=== PATIENT | female | born 1935 | race Caucasian/White ===

== ENCOUNTER 2023-08-24 13:04 | Inpatient (IN) | payer MEDICARE, OTHER ==
[~2023-08-24] VITALS: Ht 157.5 cm; Wt 47.2 kg
[2023-08-24] VITALS (7 sets, daily range): BP systolic 142–145; BP diastolic 61–66; PULSE 68–87; RESP 17–27; TEMP 97.5–99.1; O2SAT 100
[~2023-08-24 13:04] MED LIST: CYCLOBENZAPRINE5 MG PO; LEVOTHYROXINE50 MCG PO; LOSARTAN POTAS100 MG PO; MOTRIN200 MG PO
[2023-08-24 14:10] LABS: BASOPHILS % 0.5 % (0.0-1.0); HEMATOCRIT 29.9 % (34.2-44.1); LYMPHOCYTES # (AUTO) 0.6 (1.0-3.2); LYMPHOCYTES % 6.8 % (18.0-39.1); MEAN CORPUSCULAR HEMOGLOBIN 29.2 pg (28-32); MEAN CORPUSCULAR HGB CONC 30.1 g/dL (31-35); MEAN CORPUSCULAR VOLUME 97.1 fL (81-99); MONOCYTES # (AUTO) 0.5 (0.2-0.8); MONOCYTES % 5.4 % (4.4-11.3); NEUTROPHILS # (AUTO) 7.3 (2.1-6.9); NEUTROPHILS % 86.9 % (38.7-80.0); PLATELET COUNT 172 x10e3/uL (140-360); RED BLOOD COUNT 3.08 x10e6/uL (3.6-5.1); RED CELL DISTRIBUTION WIDTH 13.2 % (11.7-14.4); WHITE BLOOD COUNT 8.41 x10e3/uL (4.8-10.8)
[2023-08-24] MEDS: SODIUM CHLORIDE 0.9% 1000ML 1,000 ML IV STA (14:11)
[2023-08-24 14:21] LABS: INR 0.94; PARTIAL THROMBOPLASTIN TIME 31.2 seconds (23.8-35.5); PROTHROMBIN TIME 13.2 seconds (11.9-14.5)
[2023-08-24 14:28] LABS: ALANINE AMINOTRANSFERASE 8 IU/L (0-55); ALBUMIN 3.4 g/dL (3.5-5.0); ALBUMIN/GLOBULIN RATIO 1.1 (0.8-2.0); ALKALINE PHOSPHATASE 96 IU/L (40-150); ANION GAP 16.5 mmol/L (8-16); BILIRUBIN,TOTAL 0.7 mg/dL (0.2-1.2); BLOOD UREA NITROGEN 28 mg/dL (7-26); BUN/CREATININE RATIO 18 (6-25); CALCIUM 8.5 mg/dL (8.4-10.2); CARBON DIOXIDE 21 mmol/L (22-29); CHLORIDE 105 mmol/L (98-107); CREATINE KINASE 9 IU/L (29-168); CREATININE, SERUM 1.54 mg/dL (0.57-1.11); EST GLOMERULAR FILTRATION RATE 32 ML/MIN (>=60); GLUCOSE 106 mg/dL (74-118); MAGNESIUM 1.7 MG/DL (1.3-2.1); POTASSIUM 4.5 mmol/L (3.5-5.1); SODIUM 138 mmol/L (136-145); TOTAL PROTEIN 6.4 g/dL (6.5-8.1)
[2023-08-24 14:47] LABS: TROPONIN I < 0.001 ng/mL (0-0.300)
[2023-08-24] MEDS ORDERED: HEPARIN SOD/DEXTROSE 5% 25000 UNIT/250 ML BAG IV SCH (15:15)
[2023-08-24] MEDS ORDERED: HEPARIN SOD (PORCINE) 5,000 UNIT/ML VIAL IV ONE (15:15)
[2023-08-24] MEDS ORDERED: ALBUTEROL/IPRATROPIUM 3 ML NEB NEB PRN (15:30)
[2023-08-24] MEDS: HEPARIN 25,000 UNIT/D5W 250ML 250 ML IV SCH (16:15)
[2023-08-24] MEDS: HEPARIN SOD (PORCINE) 1000 UNIT/ML SDV IV ONE (16:16)
[2023-08-24 16:32] LABS: BILIRUBIN,URINE NEGATIVE (NEGATIVE); CLARITY,URINE HAZY (CLEAR); COLOR,URINE YELLOW (YELLOW); GLUCOSE, URINE NEGATIVE (NEGATIVE); KETONES,URINE NEGATIVE (NEGATIVE); LEUKOCYTE ESTERASE ,URINE LARGE (NEGATIVE); NITRITE,URINE NEGATIVE (NEGATIVE); PH,URINE 7 (5 - 7); PROTEIN,URINE DIPSTICK 2+ (NEGATIVE); URINE UROBILINOGEN 0.2 mg/dL (0.2 - 1)
[2023-08-24 16:43] LABS: BACTERIA,URINE MANY /HPF; WBC,URINE (MAN) 21-50 /HPF (0-5)
[2023-08-24] MEDS: METHYLPREDNISOLONE SOD SUCC 125 MG/2ML VIAL IV ONE (19:33)
[2023-08-24] MEDS: SODIUM CHLORIDE 0.9% 1000ML 1,000 ML IV ONE (19:33)
[2023-08-25] VITALS (9 sets, daily range): BP systolic 122–160; BP diastolic 59–77; PULSE 67–78; RESP 17–20; TEMP 97.3–98; O2SAT 94–100
[2023-08-25] MEDS: METHYLPREDNISOLONE SOD SUCC 125 MG/2ML VIAL IV SCH ×2 (01:39→15:20)
[2023-08-25 05:47] LABS: BASOPHILS % 0.1 % (0.0-1.0); HEMATOCRIT 27.3 % (34.2-44.1); HEMOGLOBIN 8.7 g/dL (12.0-16.0); LYMPHOCYTES # (AUTO) 0.6 (1.0-3.2); LYMPHOCYTES % 6.1 % (18.0-39.1); MEAN CORPUSCULAR HEMOGLOBIN 30.2 pg (28-32); MEAN CORPUSCULAR HGB CONC 31.9 g/dL (31-35); MEAN CORPUSCULAR VOLUME 94.8 fL (81-99); MONOCYTES # (AUTO) 0.1 (0.2-0.8); MONOCYTES % 1.4 % (4.4-11.3); NEUTROPHILS # (AUTO) 8.8 (2.1-6.9); NEUTROPHILS % 91.9 % (38.7-80.0); PLATELET COUNT 155 x10e3/uL (140-360); RED BLOOD COUNT 2.88 x10e6/uL (3.6-5.1); RED CELL DISTRIBUTION WIDTH 13.1 % (11.7-14.4); WHITE BLOOD COUNT 9.57 x10e3/uL (4.8-10.8)
[2023-08-25 06:17] LABS: ALBUMIN 2.8 g/dL (3.5-5.0); ANION GAP 13.3 mmol/L (8-16); BILIRUBIN,TOTAL 0.6 mg/dL (0.2-1.2); CALCIUM 8.1 mg/dL (8.4-10.2); CREATININE, SERUM 1.47 mg/dL (0.57-1.11); POTASSIUM 4.3 mmol/L (3.5-5.1); TOTAL PROTEIN 5.7 g/dL (6.5-8.1)
[2023-08-25 06:23] LABS: CREATINE KINASE 8 IU/L (29-168)
[2023-08-25 06:34] LABS: TROPONIN I < 0.001 ng/mL (0-0.300)
[2023-08-25] MEDS ORDERED: ONDANSETRON HCL INJ 2MG/ML 2ML 2 MG/ML VIAL IV PRN (09:15)
[2023-08-25] MEDS ORDERED: HYDROCODONE/APAP 7.5MG-325MG 1 EA TAB PO PRN (09:15)
[2023-08-25] MEDS ORDERED: ACETAMINOPHEN 325 MG TAB PO PRN (09:15)
[2023-08-25 10:22] LABS: THYROID STIMULATING HORMONE 0.829 uIU/mL (0.350-4.940)
[2023-08-25 10:28] LABS: FOLATE 7.3 ng/mL (7.0-15.4)
[2023-08-25 13:15] LABS: CREATINE KINASE 19 IU/L (29-168)
[2023-08-25 13:26] LABS: TROPONIN I < 0.001 ng/mL (0-0.300)
[2023-08-25] MEDS: APIXABAN 5 MG TABLET PO SCH (18:30)
[2023-08-25] MEDS: CYCLOBENZAPRINE HCL 10 MG TAB PO SCH (18:30)
[2023-08-25] MEDS: SENNA-S TABLET PO SCH (18:30)
[2023-08-26] VITALS (8 sets, daily range): BP systolic 149–186; BP diastolic 72–90; PULSE 66–88; RESP 16–21; TEMP 97–98.2; O2SAT 98–100
[2023-08-26] MEDS: LEVOTHYROXINE SODIUM 50 MCG TAB PO SCH (05:21)
[2023-08-26] MEDS: HYDRALAZINE HCL 20 MG/ML VIAL IV PRN (09:53)
[2023-08-26] MEDS ORDERED: ONDANSETRON HCL 4 MG ORAL DISINTEGRATING TAB PO PRN (15:45)
[2023-08-27 00:25] VITALS: BP 161/70; PULSE 74; RESP 17; TEMP 97.6; O2SAT 100
[2023-08-27 04:00] VITALS: BP 175/77; PULSE 74; RESP 21; TEMP 97; O2SAT 100
[2023-08-27 06:15] VITALS: PULSE 74; RESP 20; O2SAT 95
[2023-08-27 07:50] VITALS: BP 149/68; PULSE 82; RESP 17; TEMP 97.3; O2SAT 98
[2023-08-27 09:48] LABS: BASOPHILS % 0.1 % (0.0-1.0); EOSINOPHILS # (AUTO) 0.1 (0.0-0.4); EOSINOPHILS % 0.5 % (0.0-6.0); HEMATOCRIT 35.1 % (34.2-44.1); HEMOGLOBIN 10.4 g/dL (12.0-16.0); LYMPHOCYTES # (AUTO) 1.1 (1.0-3.2); LYMPHOCYTES % 10.6 % (18.0-39.1); MEAN CORPUSCULAR HEMOGLOBIN 29.7 pg (28-32); MEAN CORPUSCULAR HGB CONC 29.6 g/dL (31-35); MEAN CORPUSCULAR VOLUME 100.3 fL (81-99); MONOCYTES # (AUTO) 0.6 (0.2-0.8); MONOCYTES % 5.3 % (4.4-11.3); NEUTROPHILS # (AUTO) 8.5 (2.1-6.9); NEUTROPHILS % 82.6 % (38.7-80.0); PLATELET COUNT 239 x10e3/uL (140-360); RED CELL DISTRIBUTION WIDTH 13.6 % (11.7-14.4); WHITE BLOOD COUNT 10.32 x10e3/uL (4.8-10.8)
[2023-08-27 09:49] LABS: ANION GAP 16.6 mmol/L (8-16); CALCIUM 8.4 mg/dL (8.4-10.2); CREATININE, SERUM 1.48 mg/dL (0.57-1.11); POTASSIUM 3.6 mmol/L (3.5-5.1)
[2023-08-27] MEDS: ALBUTEROL/IPRATROPIUM 3 ML NEB NEB SCH (10:41)
[2023-08-27 11:17] VITALS: BP 151/83; PULSE 89; RESP 17; TEMP 97.4; O2SAT 98
[2023-08-27] MEDS ORDERED: NORVASC5 MG PO (11:46)
[2023-08-27] MEDS ORDERED: ELIQUIS5 MG PO (11:46)
[2023-08-27] MEDS ORDERED: PROAIR DIGIHAL90 MCG INH (11:47)
[2023-08-27] MEDS ORDERED: tessalon perles PO (11:50)
[2023-08-27] MEDS ORDERED: KEFLEX125 MG/5 M PO (11:51)
[2023-08-27] MEDS ORDERED: AZITHROMYCIN 250 MG TAB PO SCH (15:30)
== END 2023-08-27 12:50 | disposition home or self-care (01) | DRG 175 ==
LOC: ER 13:40 → ERHOLD 15:38 → MED/SURG2 17:53
PROVIDERS: ADMIT Internal Medicine; ATTEND Internal Medicine
DX: I26.99 Other pulmonary embolism without acute cor pulmonale (principal); J18.9 Pneumonia, unspecified organism; N39.0 Urinary tract infection, site not specified; J44.1 Chronic obstructive pulmonary disease with (acute) exacerbation; J43.9 Emphysema, unspecified; I12.9 Hypertensive chronic kidney disease with stage 1 through stage 4 chronic kidney disease, or unspecified chronic kidney disease; J47.9 Bronchiectasis, uncomplicated; R06.82 Tachypnea, not elsewhere classified; N18.9 Chronic kidney disease, unspecified; D63.1 Anemia in chronic kidney disease; R09.02 Hypoxemia; Z11.52 Encounter for screening for COVID-19; E03.9 Hypothyroidism, unspecified; K80.20 Calculus of gallbladder without cholecystitis without obstruction; B96.20 Unspecified Escherichia coli [E. coli] as the cause of diseases classified elsewhere; M80.00XD Age-related osteoporosis with current pathological fracture, unspecified site, subsequent encounter for fracture with routine healing; Z79.01 Long term (current) use of anticoagulants; Z79.890 Hormone replacement therapy
CPT/HCPCS: 36415; 71045; 71250; 74176; 78580; 80048; 80053; 81001; 82550; 82607; 82746; 83540; 83605; 83735; 84443; 84466; 84484; 85025; 85379; 85610; 85730; 87040; 87086; 87186; 87400; 93005; 93306; 93970; 94799; 99284; A9540; J0360; J1644; J2543; J2919; J7030; J7050; U0002